=== PATIENT | female | born 1945 | race Hispanic/Latino ===

== ENCOUNTER 2021-08-30 16:12 | Emergency (ER) | payer MEDICARE, OTHER ==
[~2021-08-30] VITALS: Ht 170.2 cm; Wt 64.4 kg
[2021-08-30 16:13] VITALS: BP 113/66
[2021-08-30] MEDS ORDERED: ACET-66 PO (18:20)
== END 2021-08-30 18:32 | disposition home or self-care (01) ==
LOC: EDH 16:12
DX: S42.401A Unspecified fracture of lower end of right humerus, initial encounter for closed fracture (principal); S50.02XA Contusion of left elbow, initial encounter; M06.9 Rheumatoid arthritis, unspecified; Z88.8 Allergy status to other drugs, medicaments and biological substances; W19.XXXA Unspecified fall, initial encounter; Y93.89 Activity, other specified; Y92.89 Other specified places as the place of occurrence of the external cause; Y99.8 Other external cause status
CPT/HCPCS: 73030; 73080; 73502; 73562

== ENCOUNTER 2021-11-18 18:30 | Emergency (ER) | payer MEDICARE, OTHER ==
[~2021-11-18] VITALS: Ht 160 cm; Wt 63.5 kg
[~2021-11-18 18:30] MED LIST: ACET-66 PO
[2021-11-18 19:40] LABS: BASOPHILS % (AUTO) 0.5 % (0.0-5.0); EOSINOPHILS % (AUTO) 3.2 % (0.0-8.0); HEMATOCRIT 35.3 % (36-48); LYMPHOCYTES % (AUTO) 37.5 % (21.0-51.0); MEAN CORPUSCULAR HEMOGLOBIN 33.4 pg (27.0-33.0); MEAN CORPUSCULAR HGB CONC 32.6 g/dL (32.0-36.0); MEAN CORPUSCULAR VOLUME 102.6 fL (79-99); MONOCYTES % (AUTO) 7.9 % (3.0-13.0); NEUTROPHILS % (AUTO) 50.4 % (40.0-77.0); PLATELET COUNT (AUTO) 232 K/uL (130-400); RED BLOOD CELL COUNT(AUTO) 3.44 MIL/uL (4.00-5.50); RED CELL DISTRIBUTION WIDTH 12.1 % (11.0-15.5); WHITE BLOOD COUNT (AUTO) 7.7 K/uL (4.8-10.8)
[2021-11-18 19:56] LABS: POTASSIUM 4.7 mmol/L (3.5-5.1)
[2021-11-18 20:00] LABS: ALBUMIN 3.6 g/dL (3.5-5.0); BILIRUBIN,TOTAL 0.3 mg/dL (0.2-1.0); TOTAL PROTEIN, SERUM 7.2 g/dL (6.0-8.3)
[2021-11-18 21:19] LABS: APPEARANCE,URINE Clear (CLEAR); BILIRUBIN,URINE Negative (NEGATIVE); COLOR,URINE Yellow (YELLOW); GLUCOSE, URINE (UA) Negative (NEGATIVE); KETONES,URINE Negative (NEGATIVE); LEUKOCYTE ESTERASE ,URINE Negative (NEGATIVE); NITRATE,URINE Negative (NEGATIVE); OCCULT BLOOD,URINE Negative (NEGATIVE); PROTEIN,URINE Negative (NEGATIVE)
[2021-11-18 21:49] VITALS: BP 112/62
== END 2021-11-18 21:45 | disposition home or self-care (01) ==
LOC: EDH 18:30
DX: D53.9 Nutritional anemia, unspecified (principal); E86.0 Dehydration; F32.A Depression, unspecified; E11.9 Type 2 diabetes mellitus without complications; Z87.440 Personal history of urinary (tract) infections
CPT/HCPCS: 36415; 70450; 71045; 80053; 81003; 82550; 84484; 85025; 93005

== ENCOUNTER → 2022-01-26 | Outpatient (CLI) | payer OTHER | END | disposition home or self-care (01) | LOC: RAH 12:49 | PROVIDERS: ATTEND Family Medicine | DX: I08.8 Other rheumatic multiple valve diseases (principal); I11.9 Hypertensive heart disease without heart failure; E11.9 Type 2 diabetes mellitus without complications; E78.5 Hyperlipidemia, unspecified | CPT/HCPCS: 93306 ==

== ENCOUNTER 2022-03-21 13:36 | Emergency (ER) | payer OTHER, MEDICARE ==
[2022-03-21 15:41] VITALS: BP 160/71
== END 2022-03-21 16:41 | disposition home or self-care (01) ==
LOC: EDH 13:36
DX: S32.019A Unspecified fracture of first lumbar vertebra, initial encounter for closed fracture (principal); S32.049A Unspecified fracture of fourth lumbar vertebra, initial encounter for closed fracture; M85.88 Other specified disorders of bone density and structure, other site; K57.30 Diverticulosis of large intestine without perforation or abscess without bleeding; F03.90 Unspecified dementia, unspecified severity, without behavioral disturbance, psychotic disturbance, mood disturbance, and anxiety; E11.9 Type 2 diabetes mellitus without complications; E78.00 Pure hypercholesterolemia, unspecified; I10 Essential (primary) hypertension; G89.29 Other chronic pain; Z98.890 Other specified postprocedural states; Z88.8 Allergy status to other drugs, medicaments and biological substances; W19.XXXA Unspecified fall, initial encounter; Y93.89 Activity, other specified; Y92.89 Other specified places as the place of occurrence of the external cause; Y99.8 Other external cause status
CPT/HCPCS: 72131

== ENCOUNTER 2022-05-17 14:11 | Inpatient (IN) | payer OTHER, MEDICARE ==
[~2022-05-17] VITALS: Ht 165.1 cm; Wt 60.0 kg
[2022-05-17 15:04] LABS: BASOPHILS % (AUTO) 0.4 % (0.0-5.0); EOSINOPHILS % (AUTO) 2.8 % (0.0-8.0); HEMATOCRIT 34.7 % (36-48); LYMPHOCYTES % (AUTO) 41.4 % (21.0-51.0); MEAN CORPUSCULAR HEMOGLOBIN 34.2 pg (27.0-33.0); MEAN CORPUSCULAR HGB CONC 33.4 g/dL (32.0-36.0); MEAN CORPUSCULAR VOLUME 102.4 fL (79-99); MONOCYTES % (AUTO) 8.1 % (3.0-13.0); PLATELET COUNT (AUTO) 189 K/uL (130-400); RED BLOOD CELL COUNT(AUTO) 3.39 MIL/uL (4.00-5.50); RED CELL DISTRIBUTION WIDTH 11.9 % (11.0-15.5); WHITE BLOOD COUNT (AUTO) 7.6 K/uL (4.8-10.8)
[2022-05-17 15:08] LABS: APPEARANCE,URINE CLEAR (CLEAR); BILIRUBIN,URINE NEGATIVE (NEGATIVE); COLOR,URINE YELLOW (YELLOW); GLUCOSE, URINE (UA) NEGATIVE (NEGATIVE); KETONES,URINE NEGATIVE (NEGATIVE); LEUKOCYTE ESTERASE ,URINE NEGATIVE (NEGATIVE); NITRATE,URINE NEGATIVE (NEGATIVE); OCCULT BLOOD,URINE NEGATIVE (NEGATIVE); PH,URINE 5.5 (5.0-8.0); PROTEIN,URINE NEGATIVE (NEGATIVE); UROBILINOGEN,URINE 0.2 mg/dL (0.2-1.0)
[2022-05-17 15:18] LABS: CARBON DIOXIDE 25 mmol/L (21-32); CHLORIDE 104 mmol/L (101-111); CREATININE 1.3 mg/dL (0.5-1.5); GLOMERULAR FILTR. RATE CALC 42 mL/min (>60); GLUCOSE,RANDOM 129 mg/dL (70-105); POTASSIUM 4.2 mmol/L (3.5-5.1); SODIUM SERUM 139 mmol/L (136-145); UREA NITROGEN, BLOOD 20 mg/dL (7-18)
[2022-05-17 15:23] LABS: ALANINE AMINOTRANSFERASE 11 U/L (12-78); ALBUMIN 3.1 g/dL (3.5-5.0); ASPARTATE AMINOTRANSFERASE 14 U/L (10-37); BILIRUBIN,TOTAL 0.2 mg/dL (0.2-1.0); TOTAL PROTEIN, SERUM 6.4 g/dL (6.0-8.3)
[2022-05-17 15:27] LABS: CRP QUANTITATIVE < 2.00 mg/L (0.00-9.0)
[2022-05-17] MEDS: 0.9%NACL 1000ML 1,000 ML IV SCH ×3 (15:52→21:02)
[2022-05-17] MEDS: ZOSYN 3.375GM +NS 50ML IV SCH (16:18)
[2022-05-17 17:56] LABS: THYROID STIMULATING HORMONE 0.84 uIU/mL (0.36-3.74)
[2022-05-17] MEDS ORDERED: DULO60CA64 PO (20:23)
[2022-05-17] MEDS ORDERED: ALPR-410 PO (20:31)
[2022-05-17] MEDS ORDERED: LOVA40TA2 PO (20:31)
[2022-05-17] MEDS ORDERED: LISI10TA24 PO (20:31)
[2022-05-17] MEDS ORDERED: AEC81 PO (20:31)
[2022-05-17] MEDS ORDERED: FAMO20TA8 PO (20:31)
[2022-05-17] MEDS ORDERED: METO25TA6 PO (20:31)
[2022-05-17] MEDS ORDERED: GABA-529 PO (20:31)
[2022-05-17] MEDS ORDERED: HYDR-4064 PO (20:31)
[2022-05-17] MEDS: HYDROCORTISONE SOD SUCCINATE 100 MG/2 ML VIAL IV SCH (20:51)
[2022-05-18] MEDS: ZOSYN 3.375GM +NS 50ML IV SCH ×4 (00:38→23:37)
[2022-05-18] MEDS: 0.9%NACL 1000ML 1,000 ML IV SCH ×7 (03:50→23:37)
[2022-05-18 04:00] VITALS: BP 160/74
[2022-05-18 07:26] LABS: BASOPHILS % (AUTO) 0.2 % (0.0-5.0); HEMATOCRIT 35.5 % (36-48); LYMPHOCYTES % (AUTO) 24.7 % (21.0-51.0); MEAN CORPUSCULAR HEMOGLOBIN 34.3 pg (27.0-33.0); MEAN CORPUSCULAR HGB CONC 34.9 g/dL (32.0-36.0); MEAN CORPUSCULAR VOLUME 98.1 fL (79-99); MONOCYTES % (AUTO) 2.9 % (3.0-13.0); NEUTROPHILS % (AUTO) 71.3 % (40.0-77.0); PLATELET COUNT (AUTO) 197 K/uL (130-400); RED BLOOD CELL COUNT(AUTO) 3.62 MIL/uL (4.00-5.50); RED CELL DISTRIBUTION WIDTH 11.3 % (11.0-15.5); WHITE BLOOD COUNT (AUTO) 5.9 K/uL (4.8-10.8)
[2022-05-18 07:44] LABS: CREATININE 1.1 mg/dL (0.5-1.5); POTASSIUM 4.3 mmol/L (3.5-5.1)
[2022-05-18 08:00] VITALS: BP 181/87
[2022-05-18] MEDS: METOPROLOL TARTRATE 25 MG TAB PO SCH (11:11)
[2022-05-18] MEDS: LISINOPRIL 10 MG TABLET PO SCH (11:11)
[2022-05-18] MEDS: ASPIRIN 81 MG EC TAB PO SCH (11:11)
[2022-05-18] MEDS: ATORVASTATIN 10 MG TABLET PO SCH (11:11)
[2022-05-18] MEDS: FAMOTIDINE 20MG TAB PO SCH (11:11)
[2022-05-18] MEDS: HYDROCORTISONE SOD SUCCINATE 100 MG/2 ML VIAL IV SCH ×3 (11:12→20:24)
[2022-05-18] MEDS: GABAPENTIN 100 MG CAPSULE PO SCH (11:12)
[2022-05-18] MEDS: DULOXETINE HCL 30 MG CAP PO SCH (11:12)
[2022-05-18 11:49] VITALS: BP 147/75
[2022-05-18 16:00] VITALS: BP 194/83
[2022-05-18 19:30] VITALS: BP 155/72
[2022-05-18] MEDS ORDERED: ONDANSETRON 4MG INJ ONE (20:01)
[2022-05-18] MEDS: ONDANSETRON 4MG INJ IVP PRN (20:24)
[2022-05-18 23:00] VITALS: BP 154/75
[2022-05-18] MEDS ORDERED: LACT10SO32 PO (23:20)
[2022-05-19 04:00] VITALS: BP 162/84
[2022-05-19 07:05] VITALS: BP 149/71
[2022-05-19 07:24] LABS: HEMATOCRIT 33.9 % (36-48); MEAN CORPUSCULAR HEMOGLOBIN 34.1 pg (27.0-33.0); MEAN CORPUSCULAR HGB CONC 34.8 g/dL (32.0-36.0); RED BLOOD CELL COUNT(AUTO) 3.46 MIL/uL (4.00-5.50); RED CELL DISTRIBUTION WIDTH 11.7 % (11.0-15.5); WHITE BLOOD COUNT (AUTO) 9.9 K/uL (4.8-10.8)
[2022-05-19 07:36] LABS: CREATININE 1.2 mg/dL (0.5-1.5); POTASSIUM 3.7 mmol/L (3.5-5.1)
[2022-05-19] MEDS: ZOSYN 3.375GM +NS 50ML IV SCH ×2 (09:57→18:51)
[2022-05-19] MEDS: DULOXETINE HCL 30 MG CAP PO SCH (09:57)
[2022-05-19] MEDS: METOPROLOL TARTRATE 25 MG TAB PO SCH (09:58)
[2022-05-19] MEDS: LISINOPRIL 10 MG TABLET PO SCH (09:58)
[2022-05-19] MEDS: ASPIRIN 81 MG EC TAB PO SCH (09:58)
[2022-05-19] MEDS: FAMOTIDINE 20MG TAB PO SCH (09:58)
[2022-05-19] MEDS: GABAPENTIN 100 MG CAPSULE PO SCH (09:58)
[2022-05-19] MEDS: ATORVASTATIN 10 MG TABLET PO SCH (09:58)
[2022-05-19] MEDS: HYDROCORTISONE SOD SUCCINATE 100 MG/2 ML VIAL IV SCH ×3 (09:59→20:26)
[2022-05-19] MEDS: 0.9%NACL 1000ML 1,000 ML IV SCH ×4 (09:59→21:44)
[2022-05-19 11:05] VITALS: BP 158/69
[2022-05-19] MEDS ORDERED: PHARMACY COMMUNICATION MISC SCH (11:30)
[2022-05-19] MEDS: ZOSYN 3.375GM+NS 50ML 50 ML IV SCH ×2 (12:31→20:26)
[2022-05-19 15:05] VITALS: BP 180/76
[2022-05-19 20:00] VITALS: BP 184/74
[2022-05-19] MEDS: ONDANSETRON 4MG INJ IVP PRN (20:26)
[2022-05-20 00:04] VITALS: BP 153/76
[2022-05-20] MEDS: 0.9%NACL 1000ML 1,000 ML IV SCH ×5 (00:06→22:30)
[2022-05-20] MEDS ORDERED: LACTULOSE 20 GM/30 ML UDCUP PO PRN (02:00)
[2022-05-20] MEDS: ZOSYN 3.375GM +NS 50ML IV SCH ×4 (02:32→23:50)
[2022-05-20] MEDS: ZOSYN 3.375GM+NS 50ML 50 ML IV SCH ×2 (02:34→13:30)
[2022-05-20 04:14] VITALS: BP 182/73
[2022-05-20 05:07] LABS: HEMATOCRIT 35.4 % (36-48); MEAN CORPUSCULAR HEMOGLOBIN 34.1 pg (27.0-33.0); MEAN CORPUSCULAR HGB CONC 34.5 g/dL (32.0-36.0); MEAN CORPUSCULAR VOLUME 98.9 fL (79-99); RED BLOOD CELL COUNT(AUTO) 3.58 MIL/uL (4.00-5.50); RED CELL DISTRIBUTION WIDTH 11.6 % (11.0-15.5); WHITE BLOOD COUNT (AUTO) 10.5 K/uL (4.8-10.8)
[2022-05-20 05:27] LABS: CREATININE 1.2 mg/dL (0.5-1.5); POTASSIUM 3.4 mmol/L (3.5-5.1)
[2022-05-20] MEDS: METOPROLOL TARTRATE 25 MG TAB PO SCH (06:49)
[2022-05-20] MEDS: LISINOPRIL 10 MG TABLET PO SCH (06:50)
[2022-05-20 07:05] VITALS: BP 189/78
[2022-05-20] MEDS ORDERED: POTASSIUM CHLORIDE 10MEQ/100ML 100 ML IV PRN (08:00)
[2022-05-20] MEDS ORDERED: KCL 20 MEQ ERTAB PO PRN (08:00)
[2022-05-20] MEDS ORDERED: LIDOCAINE HCL-MPF 1% 2ML VIAL IV PRN (08:00)
[2022-05-20] MEDS: HYDROCORTISONE 20 MG TABLET PO SCH ×2 (08:40→22:59)
[2022-05-20] MEDS: DULOXETINE HCL 30 MG CAP PO SCH (08:42)
[2022-05-20] MEDS: GABAPENTIN 100 MG CAPSULE PO SCH (08:43)
[2022-05-20] MEDS: ATORVASTATIN 10 MG TABLET PO SCH (08:43)
[2022-05-20] MEDS ORDERED: HYDR-4419 PO (08:44)
[2022-05-20] MEDS: ASPIRIN 81 MG EC TAB PO SCH (08:44)
[2022-05-20] MEDS: FAMOTIDINE 20MG TAB PO SCH (08:44)
[2022-05-20] MEDS ORDERED: HYDR-4153 PO (08:44)
[2022-05-20 11:05] VITALS: BP 190/78
[2022-05-20] MEDS: CLONIDINE HCL 0.1 MG TABLET PO PRN (11:15)
[2022-05-20] MEDS: POTASSIUM CHLORIDE 10% ELIXIR 20 MEQ/15 ML UDCUP PO PRN ×2 (11:20→13:34)
[2022-05-20] MEDS ORDERED: LISINOPRIL 20 MG TABLET PO SCH (15:00)
[2022-05-20 15:05] VITALS: BP 157/75
[2022-05-20 20:00] VITALS: BP 161/77
[2022-05-20] MEDS: LISINOPRIL 20 MG TABLET PO SCH (22:59)
[2022-05-21] VITALS (8 sets, daily range): BP systolic 125–208; BP diastolic 68–91
[2022-05-21] MEDS: CLONIDINE HCL 0.1 MG TABLET PO PRN (03:16)
[2022-05-21] MEDS ORDERED: HYDRALAZINE 20MG/ML VIAL IV ONE (05:00)
[2022-05-21 05:10] LABS: HEMATOCRIT 32.8 % (36-48); MEAN CORPUSCULAR HEMOGLOBIN 34.3 pg (27.0-33.0); MEAN CORPUSCULAR HGB CONC 35.1 g/dL (32.0-36.0); MEAN CORPUSCULAR VOLUME 97.9 fL (79-99); RED BLOOD CELL COUNT(AUTO) 3.35 MIL/uL (4.00-5.50); RED CELL DISTRIBUTION WIDTH 11.6 % (11.0-15.5); WHITE BLOOD COUNT (AUTO) 9.8 K/uL (4.8-10.8)
[2022-05-21 05:30] LABS: CREATININE 1.2 mg/dL (0.5-1.5); POTASSIUM 3.4 mmol/L (3.5-5.1)
[2022-05-21] MEDS: POTASSIUM CHLORIDE 10% ELIXIR 20 MEQ/15 ML UDCUP PO PRN ×2 (07:38→10:44)
[2022-05-21] MEDS: HYDROCORTISONE 20 MG TABLET PO SCH ×2 (08:18→21:53)
[2022-05-21] MEDS: FAMOTIDINE 20MG TAB PO SCH (08:19)
[2022-05-21] MEDS: GABAPENTIN 100 MG CAPSULE PO SCH (08:20)
[2022-05-21] MEDS: DULOXETINE HCL 30 MG CAP PO SCH (08:22)
[2022-05-21] MEDS: ASPIRIN 81 MG EC TAB PO SCH (08:22)
[2022-05-21] MEDS: ATORVASTATIN 10 MG TABLET PO SCH (08:24)
[2022-05-21] MEDS: LISINOPRIL 20 MG TABLET PO SCH ×2 (08:24→21:54)
[2022-05-21] MEDS: METOPROLOL TARTRATE 25 MG TAB PO SCH (08:25)
[2022-05-21] MEDS: ZOSYN 3.375GM +NS 50ML IV SCH ×2 (08:28→17:17)
[2022-05-21] MEDS ORDERED: AMLODIPINE 5 MG TAB PO SCH (09:00)
[2022-05-21] MEDS ORDERED: HYDROCHLOROTHIAZIDE 25 MG TABLET PO ONE (10:30)
[2022-05-21] MEDS: HYDROCHLOROTHIAZIDE 25 MG TABLET PO SCH (10:43)
[2022-05-21] MEDS ORDERED: AMILORIDE 5MG TAB PO SCH (12:30)
[2022-05-21] MEDS: 0.9%NACL 1000ML 1,000 ML IV SCH ×3 (12:58→21:53)
[2022-05-21] MEDS ORDERED: ACETAMINOPHEN 325 MG TAB PO PRN (21:30)
[2022-05-22] MEDS: ZOSYN 3.375GM +NS 50ML IV SCH ×2 (00:10→07:51)
[2022-05-22 00:34] VITALS: BP 160/76
[2022-05-22 03:56] VITALS: BP 177/74
[2022-05-22] MEDS: HYDRALAZINE 25MG TABLET PO PRN ×2 (04:07→12:46)
[2022-05-22 04:56] LABS: HEMATOCRIT 33.3 % (36-48); MEAN CORPUSCULAR HEMOGLOBIN 34.1 pg (27.0-33.0); MEAN CORPUSCULAR HGB CONC 35.1 g/dL (32.0-36.0); MEAN CORPUSCULAR VOLUME 97.1 fL (79-99); RED BLOOD CELL COUNT(AUTO) 3.43 MIL/uL (4.00-5.50); RED CELL DISTRIBUTION WIDTH 11.4 % (11.0-15.5); WHITE BLOOD COUNT (AUTO) 8.7 K/uL (4.8-10.8)
[2022-05-22 05:15] LABS: CREATININE 1.1 mg/dL (0.5-1.5); POTASSIUM 3.8 mmol/L (3.5-5.1)
[2022-05-22] MEDS: FAMOTIDINE 20MG TAB PO SCH (07:42)
[2022-05-22] MEDS: ATORVASTATIN 10 MG TABLET PO SCH (07:42)
[2022-05-22] MEDS: DULOXETINE HCL 30 MG CAP PO SCH (07:42)
[2022-05-22] MEDS: HYDROCORTISONE 20 MG TABLET PO SCH (07:43)
[2022-05-22] MEDS: GABAPENTIN 100 MG CAPSULE PO SCH (07:43)
[2022-05-22] MEDS: ASPIRIN 81 MG EC TAB PO SCH (07:44)
[2022-05-22] MEDS: LISINOPRIL 20 MG TABLET PO SCH (07:48)
[2022-05-22] MEDS: HYDROCHLOROTHIAZIDE 25 MG TABLET PO SCH (07:49)
[2022-05-22] MEDS: METOPROLOL TARTRATE 25 MG TAB PO SCH (07:49)
[2022-05-22 08:00] VITALS: BP 185/85
[2022-05-22] MEDS ORDERED: AMIL5TAB8 PO ×2 (09:07→09:15)
[2022-05-22] MEDS ORDERED: LISI20TA24 PO (09:07)
[2022-05-22] MEDS ORDERED: AMLO-257 PO (09:07)
[2022-05-22] MEDS ORDERED: HYDR25TA PO (09:11)
[2022-05-22] MEDS ORDERED: AMILORIDE 5MG TAB PO SCH (09:30)
[2022-05-22] MEDS ORDERED: AMLODIPINE 5 MG TAB PO SCH (09:30)
[2022-05-22] MEDS ORDERED: SPIR25TA6 PO (10:47)
[2022-05-22 12:00] VITALS: BP 119/62
== END 2022-05-22 20:20 | disposition home or self-care (01) | DRG 640 ==
LOC: EDH 14:11 → EDHIP 16:57 → 3CH 05-18 04:48
PROVIDERS: ADMIT Hospitalist; ATTEND Hospitalist
DX: R62.7 Adult failure to thrive (principal); G93.41 Metabolic encephalopathy; E27.1 Primary adrenocortical insufficiency; E44.0 Moderate protein-calorie malnutrition; N39.0 Urinary tract infection, site not specified; N17.9 Acute kidney failure, unspecified; Z20.822 Contact with and (suspected) exposure to COVID-19; I12.9 Hypertensive chronic kidney disease with stage 1 through stage 4 chronic kidney disease, or unspecified chronic kidney disease; N18.30 Chronic kidney disease, stage 3 unspecified; K82.8 Other specified diseases of gallbladder; E87.6 Hypokalemia; R32 Unspecified urinary incontinence; Z88.8 Allergy status to other drugs, medicaments and biological substances; E78.00 Pure hypercholesterolemia, unspecified; Z79.899 Other long term (current) drug therapy; F03.90 Unspecified dementia, unspecified severity, without behavioral disturbance, psychotic disturbance, mood disturbance, and anxiety; Z74.01 Bed confinement status; Z87.891 Personal history of nicotine dependence; Z93.1 Gastrostomy status; F32.A Depression, unspecified; Z68.22 Body mass index [BMI] 22.0-22.9, adult; Z90.49 Acquired absence of other specified parts of digestive tract; E11.22 Type 2 diabetes mellitus with diabetic chronic kidney disease
CPT/HCPCS: 36415; 70450; 70553; 71045; 74176; 76705; 80048; 80053; 80400; 81003; 82040; 82140; 82533; 82607; 83605; 84145; 84443; 84484; 85025; 85027; 86140; 87088; 87635; 92526; 92610; 93005; 97039; G0378; J1720; J2405; J2543; J7030

== ENCOUNTER 2022-08-01 07:40 | Emergency (ER) | payer OTHER, MEDICARE ==
[~2022-08-01 07:40] MED LIST changes: -ACET-66 PO; +AEC81 PO; +DULO60CA64 PO; +FAMO20TA8 PO; +GABA-529 PO; +HYDR-4153 PO; +HYDR-4419 PO; +LACT10SO32 PO; +LISI20TA24 PO; +LOVA40TA2 PO; +METO25TA6 PO; +SPIR25TA6 PO
[2022-08-01 08:04] LABS: BASOPHILS % (AUTO) 0.7 % (0.0-5.0); EOSINOPHILS % (AUTO) 3.4 % (0.0-8.0); HEMATOCRIT 34.4 % (36-48); LYMPHOCYTES % (AUTO) 36.5 % (21.0-51.0); MEAN CORPUSCULAR HEMOGLOBIN 34.8 pg (27.0-33.0); MEAN CORPUSCULAR HGB CONC 34.6 g/dL (32.0-36.0); MEAN CORPUSCULAR VOLUME 100.6 fL (79-99); MONOCYTES % (AUTO) 10.8 % (3.0-13.0); NEUTROPHILS % (AUTO) 47.8 % (40.0-77.0); PLATELET COUNT (AUTO) 210 K/uL (130-400); RED BLOOD CELL COUNT(AUTO) 3.42 MIL/uL (4.00-5.50); RED CELL DISTRIBUTION WIDTH 12.2 % (11.0-15.5); WHITE BLOOD COUNT (AUTO) 7.2 K/uL (4.8-10.8)
[2022-08-01 08:06] LABS: APPEARANCE,URINE CLEAR (CLEAR); BILIRUBIN,URINE SMALL (NEGATIVE); COLOR,URINE ORANGE (YELLOW); GLUCOSE, URINE (UA) 250 mg/dL (NEGATIVE); KETONES,URINE 5 mg/dL (NEGATIVE); LEUKOCYTE ESTERASE ,URINE NEGATIVE (NEGATIVE); NITRATE,URINE POSITIVE (NEGATIVE); OCCULT BLOOD,URINE NEGATIVE (NEGATIVE); PROTEIN,URINE 30 mg/dL (NEGATIVE)
[2022-08-01 08:12] LABS: CREATININE 1.4 mg/dL (0.5-1.5); POTASSIUM 4.1 mmol/L (3.5-5.1)
[2022-08-01 08:17] LABS: ALBUMIN 3.3 g/dL (3.5-5.0); TOTAL PROTEIN, SERUM 6.9 g/dL (6.0-8.3)
[2022-08-01 08:24] LABS: BACTERIA,URINE Rare /HPF (None Seen); RBC,URINE 0-1 /HPF (0-1); SQUAMOUS EPITHELIAL CELL,UR Rare /HPF (0-2); WBC,URINE 0-1 /HPF (0-1)
[2022-08-01] MEDS ORDERED: CEFTRIAXONE 1G VIAL IVP STA (09:43)
[2022-08-01] MEDS ORDERED: CEPH500B PO (09:49)
[2022-08-01 10:02] VITALS: BP 159/66
== END 2022-08-01 11:51 | disposition home or self-care (01) ==
LOC: EDH 07:40
DX: D53.9 Nutritional anemia, unspecified (principal); N39.0 Urinary tract infection, site not specified; F41.9 Anxiety disorder, unspecified; M19.90 Unspecified osteoarthritis, unspecified site; F32.A Depression, unspecified; E11.9 Type 2 diabetes mellitus without complications; I10 Essential (primary) hypertension; Z88.8 Allergy status to other drugs, medicaments and biological substances; Z79.899 Other long term (current) drug therapy; Z79.82 Long term (current) use of aspirin; Z98.890 Other specified postprocedural states; W01.0XXA Fall on same level from slipping, tripping and stumbling without subsequent striking against object, initial encounter; Y93.89 Activity, other specified; Y92.89 Other specified places as the place of occurrence of the external cause; Y99.8 Other external cause status
CPT/HCPCS: 99284; 96374; 82550; 84484; 80053; 85025; 87088; 81001; 36415; 93005; J0696